=== PATIENT | female | born 1950 | race Caucasian/White ===

== ENCOUNTER → 2020-10-15 | Outpatient (CLI) | payer OTHER ==
[~2020-10-15] MED LIST: B12INJ IM; BOTOX100 UNIT IM; BUTALB-APAP-CA1 EACH PO; DEXEDRINE10 M1 PO; HYDROXYCHLOROQ200 M1 PO; IMITREX100 MG PO; LASIX 40 MG TAB40 M2 PO; LEVOTHYROXINE0.05 MG PO; LIDODERM 5%1 PATC1 TRANSDERM; METAXALONE800 MG PO; OPANA ER30 M1 PO; OPANA5 M1; PHENERGAN 25 MG25 M1 PO; PROZAC20 MG PO; XANAX1 MG PO
== END ==
LOC: LAB 14:17
PROVIDERS: ATTEND Anesthesiology
DX: Z01.812 Encounter for preprocedural laboratory examination (principal); Z20.828 Contact with and (suspected) exposure to other viral communicable diseases